=== PATIENT | female | born 1940 | race Caucasian/White ===

== ENCOUNTER → 2017-03-05 | Outpatient (CLI) | payer MEDICARE, BC | END | disposition disaster alternative care site (69) | LOC: GBCOE 08:57 | DX: Z12.31 Encounter for screening mammogram for malignant neoplasm of breast (principal) | CPT/HCPCS: G0202 ==

== ENCOUNTER 2017-03-11 09:13 | Emergency (ER) | payer MEDICARE, BC ==
--- NOTE | ~2017-03-11 | ER ---
PATIENT'S NAME: J[facility]AN [facility] AGE: 76 Y [address] ROOM: [place] [address] LOCATION: [facility] ADMIT DATE: 03/11/2017 ER/Outpatient Report DISCHARGE DATE: 03/11/2017 FAMILY PHYSICIAN: Ky Palacios MD ATTENDING PHYSICIAN: Lisbet Muñoz IDENTIFICATION: A 76-year-old female. CHIEF COMPLAINT: Right shoulder pain. HISTORY OF PRESENT ILLNESS: The patient presents complaining of pain radiating from her right shoulder to her right thumb. When I asked her when the onset was, she had told the nurse 3 to 6 months ago, she told me "really bad about a week ago. When I asked her when it initially started, she was vague and said "a while ago." She told me that she saw a neurologist "a couple of months ago." She was not certain whom she saw. She saw Dr. Palacios and then an orthopedic surgeon 1 to 2 weeks ago and received a cortisone shot, which kept her up for a couple of nights but has not given her relief. She made herself an appointment with Dr. Rowell, neurologist, but can not get in until March 31. Apparently, it was recommended for her to go to physical therapy, but she did not do that as she did not feel that would be helpful. She has taken no pain medication for this. She has pain in her right shoulder, that is worse with movement. She denies any neck pain. She has no numbness or tingling. ALLERGIES: KEFLEX, ERYTHROMYCIN, QUESTRAN, PROZAC, COMPAZINE, MONISTAT, AMOXICILLIN, SULFA, AND FLONASE. CURRENT MEDICATIONS: 1. Paxil 20 mg daily. 2. Multivitamin daily. 3. Calcium 600 mg b.i.d. 4. Lutein 6 mg b.i.d. 5. Aspirin 81 mg daily. 6. Vitamin D 1000 International Units daily. 7. She also takes Synthroid, but she did not have that written on her list. MEDICAL PROBLEMS: Hypothyroidism. PRIOR SURGERIES: Denies. PATIENT'S NAME: J[facility]AN [facility] AGE: 76 Y [address] ROOM: [place] [address] LOCATION: [facility] ADMIT DATE: 03/11/2017 ER/Outpatient Report DISCHARGE DATE: 03/11/2017 FAMILY PHYSICIAN: Ky Palacios MD ATTENDING PHYSICIAN: Lisbet Muñoz SOCIAL HISTORY: The patient lives here in [place]. She is retired. Tobacco use, denies. Alcohol use, denies. Drug use, denies. REVIEW OF SYSTEMS: All systems reviewed and negative other than what is noted in the HPI. PHYSICAL EXAMINATION: VITAL SIGNS: Height 5 feet 7 inches, weight 66.1 kg, blood pressure 122/66, pulse 91, respirations 14, temperature 97.7, sats 96% on room air. GENERAL: A 76-year-old female, in no acute distress. HEENT: Head: Normocephalic, atraumatic. Eyes: Pupils equal and reactive to light and accommodation. Extraocular movements intact. Conjunctivae clear. Nose: Mucosa pink. No lesions. Mouth: No lesions. Pharynx benign. NECK: Supple. No lymphadenopathy. LUNGS: Clear to auscultation. Breath sounds are equal. HEART: Regular rate and rhythm. ABDOMEN: Soft, nondistended, nontender. MUSCULOSKELETAL: She has no tenderness to palpation of her cervical spine. She does have tenderness over the anterior aspect of her right shoulder. She has full range of motion, but pain with abduction, internal and external rotation. She has good distal pulses, and sensation is intact to light touch. EMERGENCY DEPARTMENT COURSE: I did receive records from [facility] and reviewed the records to include lab work dated May of 2015 and office visit with Dr. Palacios and a consult with Dr. Bryan. The consult with Dr. Bryan had a diagnosis of right shoulder impingement syndrome. She received an injection of lidocaine, methylprednisolone, and Marcaine, which did give her immediate relief at that visit. It was recommended for her to go to physical therapy to work on rotator cuff strengthening, and then if she continued to have problems, workup might include an MRI arthrogram and maybe subacromial decompression if her symptoms did not improve. She did not follow up back there and she did not proceed with physical therapy. Dr. Palacios's note dated February 09 was also reviewed, and she was referred to Dr. Bryan at that time. She had a three- view x-ray of the right shoulder showing mild degenerative changes. IMPRESSION: Right shoulder impingement. PLAN: Ice as needed. Ibuprofen 400 mg 3 times a day with food for 7 days. Physical therapy as previously ordered by Dr. Bryan and follow up with Dr. rByan or Dr. Palacios in 1 week. Follow up sooner if any problems or concerns. PATIENT'S NAME: J[facility]AN [facility] AGE: 76 Y [address] ROOM: [place] [address] LOCATION: [facility] ADMIT DATE: 03/11/2017 ER/Outpatient Report DISCHARGE DATE: 03/11/2017 FAMILY PHYSICIAN: Ky Palacios MD ATTENDING PHYSICIAN: Lisbet Muñoz LISBET MUÑOZ MD CAR/modl /[id number] CC: MD Jin Dunaway MD d: 03/11/17 2303 t: 03/19/17 1924, OUTPATIENT REPORT
== END 2017-03-11 10:20 | disposition disaster alternative care site (69) ==
LOC: GMED 09:13
DX: M25.811 Other specified joint disorders, right shoulder (principal); E03.9 Hypothyroidism, unspecified; Z88.8 Allergy status to other drugs, medicaments and biological substances; Z88.1 Allergy status to other antibiotic agents; Z88.2 Allergy status to sulfonamides; Z79.899 Other long term (current) drug therapy; Z79.82 Long term (current) use of aspirin